=== PATIENT | male | born 1945 | race Hispanic/Latino ===

== ENCOUNTER 2017-11-09 06:51 | Day surgery (SDC) | payer MEDICARE, OTHER ==
[2017-07-21 09:51] VITALS: BMI 27.7
[2017-11-09 07:55] LABS: INR 1.1; PROTHROMBIN TIME 12.5 SECONDS (9.7-12.2)
[2017-11-09] MEDS ORDERED: Acetaminophen-Codeine 300/30 mg Tab PO PRN (08:36)
[2017-11-09] MEDS ORDERED: Propofol 10 mg/ml Inj (20 ML) ONE (08:42)
[2017-11-09] MEDS ORDERED: Midazolam 2 MG/2 ML VIAL ONE (08:43)
[2017-11-09] MEDS ORDERED: Dextrose 5%/0.45% NS 1,000 ML IV SCH (08:45)
[2017-11-09] MEDS ORDERED: Morphine 4 MG/ML VIAL IVP PRN (08:49)
[2017-11-09] MEDS ORDERED: Lactated Ringer's 1,000 ML IV ONE (08:55)
[2017-11-09] MEDS: ceFAZolin 1 gm in NS 1 GM/100 ML BAG IVPB ONE ×2 (08:55→09:00)
[2017-11-09] MEDS ORDERED: Lactated Ringer's 500 ML IV ONE (10:30)
[2017-11-09 11:06] VITALS: BP 157/70; PULSE 70; RESP 18; TEMP 97; O2SAT 100
--- NOTE | 2017-11-09 20:10 | OP ---
PROCEDURE DATE: 11/09/2017 PREOPERATIVE DIAGNOSIS: Right vocal cord lesion. POSTOPERATIVE DIAGNOSIS: Right vocal cord lesion. PROCEDURE: Micro-direct laryngoscopy with biopsy. SIGNIFICANT FINDINGS: Right vocal cord lesion. DESCRIPTION OF PROCEDURE: The patient was brought into the room, placed in a supine position. Anesthesia was initiated through an ET tube. Shoulder roll was placed. Neck extended. The patient was draped in usual manner. Wet gauze was placed over the gums in order to protect them, and was removed at the end of the case. A direct laryngoscope was inserted into the oral cavity, passed through oropharynx and hypopharynx. The pharyngeal guerra, base of tongue, vallecula, epiglottis, AE folds, false cords, true cords, pyriform sinuses, arytenoids were brought into view. The right vocal cord lesion was noted anteriorly. The direct laryngoscope was suspended on the Delgado wrist liner the usual manner. Microscope was brought into position to view the right vocal cord lesion. Multiple biopsies were taken. Bleeding was controlled with time. The direct laryngoscope was taken off suspension and removed. The microscope was taken off position. The patient was taken off suspension and taken to the recovery room in a stable manner. Clyde Costa MD
== END 2017-11-09 11:45 | disposition home or self-care (01) ==
LOC: C.SDS 06:51
PROVIDERS: ATTEND Otolaryngology
DX: C32.0 Malignant neoplasm of glottis (principal); J38.1 Polyp of vocal cord and larynx
CPT/HCPCS: 31536; 36415; 85610; 85730; 86850; 86900; 88305; J0690; J1100; J2250; J2270; J2405; J2704; J3010; J7120

== ENCOUNTER 2018-10-27 07:32 | Outpatient (CLI) | payer MEDICARE, OTHER | END 2018-10-27 07:33 | disposition home or self-care (01) | LOC: C.CTH 07:32 | DX: M25.511 Pain in right shoulder (principal); M79.601 Pain in right arm; M19.011 Primary osteoarthritis, right shoulder; M50.31 Other cervical disc degeneration, high cervical region ==